=== PATIENT | female | born 1960 | race Caucasian/White ===

== ENCOUNTER 2019-08-09 11:10 | Outpatient (CLI) | payer OTHER, SELFPAY ==
--- NOTE | ~2019-08-09 | XR_ITS ---
EXAMINATION: XR ankle LT 2V DATE: 08/09/2019 11:27 INDICATION: Left ankle pain. TECHNIQUE: 2 views of left ankle were obtained. COMPARISON: None. FINDINGS: Bone alignment is normal. No fracture. There is mild osteoarthritis of talonavicular joint. There are enthesophytes at medial malleolus and posterior aspect of calcaneal tuberosity. There is a nkle soft tissue swelling. IMPRESSION: 1. Mild osteoarthritis of talonavicular joint. Reviewed, dictated and finalized at location A.
== END 2019-08-09 11:11 | disposition home or self-care (01) ==
PROVIDERS: PCP Physician Assistant; Visit Provider Physician Assistant
DX: M25.572 Pain in left ankle and joints of left foot (principal)
CPT/HCPCS: 73600

== ENCOUNTER 2020-08-15 14:40 | Outpatient (CLI) | payer OTHER, SELFPAY ==
--- NOTE | ~2020-08-15 | XR_ITS ---
EXAMINATION: XR chest 2V EXAM DATE: 08/15/2020 15:00 INDICATION: cough, congestion, asthma induced by cold. TECHNIQUE: Frontal and lateral projections of the chest obtained and reviewed. There is no prior kylie dy for comparison. FINDINGS: The lungs are clear. There are no pleural effusions. The cardiomediastinal silhouette is within normal limits. There is no pneumothorax suspected. Lower cervical fusion. Mild thoracic spon dylosis. Mild hyperinflation. There are cholecystectomy clips. IMPRESSION: No acute cardiopulmonary findings. Reviewed, dictated and finalized at location A.
== END 2020-08-15 14:41 | disposition home or self-care (01) ==
LOC: CHSLAB 14:42
PROVIDERS: PCP Physician Assistant; Visit Provider Physician Assistant
DX: R06.2 Wheezing (principal)
CPT/HCPCS: 71046

== ENCOUNTER 2020-08-17 12:43 | Emergency (ER) | payer OTHER, SELFPAY ==
[2020-08-17] VITALS (7 sets, daily range): BP systolic 144–150; BP diastolic 49–69; PULSE 64–76; RESP 16–20; TEMP 37.1; O2SAT 93–100
--- NOTE | ~2020-08-17 | XR_ITS ---
EXAMINATION: XR chest 2V DATE: 08/17/2020 13:20 INDICATION: Cough and shortness of breath TECHNIQUE: PA and lateral views of the chest are obtained. COMPARISON: 08/15/2020 FINDINGS: The lungs are free of acute opacities. There is no pleural effusion or pneumothorax. The ca rdiomediastinal silhouette is normal. There is moderate thoracic spondylosis. There are partially rossy ged changes of anterior fusion in the lower cervical spine. Surgical clips in the right upper quadran t are likely from prior cholecystectomy. IMPRESSION: 1. No acute cardiopulmonary abnormality. Reviewed, dictated and finalized at location B.
--- NOTE | 2020-08-17 12:49 | ED.SOB ---
HPI - SOB/Dyspnea General Chief Complaint: Upper Respiratory Infection Stated Complaint: SOB wheezing Time Seen by Provider: 08/17/20 12:49 Source: patient and RN notes reviewed Mode of arrival: ambulatory Limitations: no limitations History of Present Illness HPI Narrative: patient states that she has been to her primary care physician and has been given ciprofloxacin but that did not seem to be helping so she was changed over to Zithromax. She has also been given nebulizer treatments at home consisting of albuterol. She says she is not getting any better cough continues. She was diagnosed with COVID in March and she has been vaccinated. She had a recent repeat COVID test but she does not have the results. She denies any chest pain she has not been on any steroids. She states when she gets a cold it usually flares up her asthma and she uses a MDI MD elicited complaint: shortness of breath Pertinent past history: asthma Onset (ago): week(s) (1) Context: recent illness Timing: intermittent Severity: moderate Exacerbating factors: exertion and coughing Relieving factors: nothing Known history of: asthma Associated symptoms: cough and sputum production ( occasionally) Treatment prior to arrival: none Related Data Home oxygen amount: none Home Medications Medication Instructions Recorded Confirmed citalopram 20 mg PO DAILY 05/13/19 08/17/20 gabapentin 300 mg PO TID 05/13/19 08/17/20 lisinopril 20 mg PO DAILY 05/13/19 08/17/20 albuterol sulfate 90 mcg INHALATION QID 08/17/20 08/17/20 losartan 100 mg PO DAILY 08/17/20 08/17/20 omeprazole 20 mg PO DAILY 08/17/20 08/17/20 Allergies Allergy/AdvReac Type Severity Reaction Status Date / Time erythromycin base Allergy Vomiting Verified 05/13/19 18:22 neomycin Allergy Vomiting Verified 05/13/19 18:22 Sulfa (Sulfonamide Allergy Hives Verified 05/13/19 18:22 Antibiotics) meperidine [From Demerol] AdvReac Nausea and Verified 05/13/19 18:22 Vomiting CARBINOXAMINE MALEATE Allergy Unknown Uncoded 05/13/19 18:22 Review of Systems Review of Systems: All systems reviewed & are unremarkable except as noted in HPI and below Constitutional: Constitutional: Denies chills and Reports fever(s) ( feels like she has low-grade fevers but states only 99.7) Respiratory: Respiratory: Reports no additional respiratory complaints [facility] Past Medical History Medical History (Updated 08/17/20 @ 14:34 by Bebo Khanna MD) Asthma History of kidney stones Surgical History Surgical History History of bilateral knee replacement Social History Social History (Updated 08/17/20 @ 13:06 by Bebo Khanna MD) Smoking status: Never smoker Additional occupation/education comments: teacher Exam Const: General: healthy appearing and no acute distress Nutritional Appearance: obese centrally obese Orientation/consciousness: patient oriented x3 HENMT: Head: normal to inspection Ears: external ears normal Face and sinus: normal facial exam Mouth: Yes moist mucous membranes Eyes: Conjunctivae: conjunctivae normal Pupils: Equal, round and reactive pupils present EOM: EOMs intact bilaterally Neck: Neck: normal visual inspection Resp: Effort & Inspection: normal respiratory effort Auscultation: wheezes expiratory wheezes, inspiratory wheezes, anterior, posterior and throughout Cardio: Rate: regular rate Rhythm: regular rhythm GI: GI Palp: Yes Soft to palpation and No Tenderness to palpation present (GI) Auscultation: normal bowel sounds Back/Spine/Pelvis: Cervical Spine: cervical ROM normal Thoracic/Lumbar Spine: thoraco-lumbar ROM normal Skin: General skin exam: normal color Rashes: no rashes Neuro: General: patient oriented x3, moves all extremities and no focal motor deficits Speech: normal speech Gait exam (Neuro): Normal gait present Extrem: General: normal to inspection and no pedal edema Psych:
[2020-08-17 13:10] LABS: Basophils Absolute Auto 0.03 K/mm3 (0.00-0.10); Basophils Percent Auto 0.6 % (0.0-1.0); Eosinophils Absolute Auto 0.21 K/mm3 (0.02-0.50); Eosinophils Percent Auto 3.9 % (1.0-6.0); Hematocrit 38.4 % (35.0-49.0); Hemoglobin 12.2 g/dL (12.0-15.0); Immature Granulocyte Absolute 0.01 K/mm3 (0.00-0.00); Immature Granulocyte Percent A 0.2 % (0.0-0.0); Lymphocytes Absolute Auto 1.34 K/mm3 (1.10-4.50); Mean Corpuscular HGB Conc 31.8 g/dL (32.0-36.0); Mean Corpuscular Hemoglobin 27.9 pg (27.0-31.0); Mean Corpuscular Volume 87.7 fL (78.0-102.0); Mean Platelet Volume 9.4 fl (9.2-11.8); Monocytes Absolute Auto 0.42 K/mm3 (0.10-0.90); Monocytes Percent Auto 7.8 % (2.0-11.0); Neutrophils Absolute Auto 3.4 K/mm3 (1.7-7.2); Neutrophils Percent Auto 62.5 % (50.0-70.0); Platelet Count Result 270 K/mm3 (150-420); Red Blood Count 4.38 M/mm3 (4.20-5.40); Red Cell Distribution Width 13.2 % (11.6-14.4); White Blood Count 5.4 K/mm3 (4.8-10.8)
[2020-08-17] MEDS: IPRATROPIUM 0.5 MG/ALBUTEROL SULFATE 2.5 MG AMPUL.NEB 3 ML INHALATION (13:21)
[2020-08-17 13:23] LABS: Alanine Aminotransferase 28 U/L (14-59); Albumin Level 3.4 g/dL (3.4-5.0); Anion Gap 8 mmol/L (8-16); Aspartate Amino Transferase 20 U/L (15-37); Bilirubin,Total 0.4 mg/dL (0.00-1.00); Blood Urea Nitrogen 15 mg/dL (7-18); Calcium 8.7 mg/dL (8.5-10.1); Carbon Dioxide 29 mmol/L (21-32); Chloride 103 mmol/L (98-108); Estimated Glomerular Filt Rate 53; Glucose 92 mg/dL (70-99); Magnesium 1.7 mg/dL (1.8-2.4); Osmolality Calculated 290 mOsm/kg (285-295); Potassium 3.8 mmol/L (3.5-5.1); Sodium 140 mmol/L (136-145); Total Protein 7.7 g/dL (6.4-8.2)
[2020-08-17 13:24] LABS: BNP 106 pg/mL (0-100)
[2020-08-17 13:27] LABS: Alkaline Phosphatase 92 U/L (46-116)
[2020-08-17] MEDS: LEVALBUTEROL NEB 1.25 MG/3 ML INHALATION (13:56)
[2020-08-17] MEDS: methylPREDNISolone SOD SUCC 125 MG VIAL IM (14:39)
== END 2020-08-17 14:45 | disposition home or self-care (01) ==
PROVIDERS: Emergency Provider Emergency Medicine; PCP Physician Assistant
DX: J45.21 Mild intermittent asthma with (acute) exacerbation (principal); R06.02 Shortness of breath
CPT/HCPCS: 36415; 71046; 80053; 83735; 83880; 85025; 94640; 96372; 99283; 99284; J2930

== ENCOUNTER 2020-09-11 15:02 | Outpatient (CLI) | payer OTHER, SELFPAY ==
--- NOTE | ~2020-09-11 | CT_ITS ---
EXAMINATION: CT soft tissue neck w con DATE: 09/11/2020 15:52 INDICATION: Posterior right neck mass. TECHNIQUE: Computed tomography (CT) of the neck was performed with 75 mL Omnipaque-350 intravenous co ntrast. Automated exposure control and iterative reconstruction technique were employed. The dose-hipolito gth product was 496.48 mGy-cm. COMPARISON: None FINDINGS: There is a 1.5 cm subcutaneous lipoma in the right posterior neck. There is a skin marker o verlying this area. There are no pathologically enlarged lymph nodes. There is plaque in the proximal internal carotid arteries with 0% stenosis relative to normal distal artery lumen diameters. There i s a complete opacification of left sphenoid sinus with thickening and sclerosis of the sinus pichardo, c onsistent with chronic sinusitis. There are changes of anterior fusion procedure at C6-C7. There is m oderate cervical spondylosis. IMPRESSION: 1. 1.5 cm subcutaneous lipoma in the right posterior neck. 2. Chronic sinusitis. Reviewed, dictated and finalized at location B.
== END 2020-09-11 15:03 | disposition home or self-care (01) ==
LOC: CHSIMG 15:03
PROVIDERS: PCP Physician Assistant; Visit Provider Physician Assistant
DX: R59.0 Localized enlarged lymph nodes (principal)
CPT/HCPCS: 70491; Q9967

== ENCOUNTER 2020-11-03 11:50 | Outpatient (CLI) | payer OTHER, SELFPAY ==
[2020-11-03 12:11] LABS: Basophils Absolute Auto 0.06 K/mm3 (0.00-0.10); Basophils Percent Auto 0.9 % (0.0-1.0); Eosinophils Absolute Auto 0.29 K/mm3 (0.02-0.50); Eosinophils Percent Auto 4.4 % (1.0-6.0); Hematocrit 37.9 % (35.0-49.0); Hemoglobin 12.5 g/dL (12.0-15.0); Immature Granulocyte Absolute 0.02 K/mm3 (0.00-0.00); Immature Granulocyte Percent A 0.3 % (0.0-0.0); Lymphocytes Absolute Auto 1.27 K/mm3 (1.10-4.50); Lymphocytes Percent Auto 19.1 % (18.0-42.0); Mean Corpuscular Hemoglobin 28.7 pg (27.0-31.0); Mean Corpuscular Volume 87.1 fL (78.0-102.0); Mean Platelet Volume 9.5 fl (9.2-11.8); Monocytes Absolute Auto 0.45 K/mm3 (0.10-0.90); Monocytes Percent Auto 6.8 % (2.0-11.0); Neutrophils Absolute Auto 4.6 K/mm3 (1.7-7.2); Neutrophils Percent Auto 68.5 % (50.0-70.0); Platelet Count Result 249 K/mm3 (150-420); Red Blood Count 4.35 M/mm3 (4.20-5.40); Red Cell Distribution Width 12.8 % (11.6-14.4); White Blood Count 6.7 K/mm3 (4.8-10.8)
[2020-11-03 13:41] LABS: Alanine Aminotransferase 20 U/L (14-59); Albumin Level 3.8 g/dL (3.4-5.0); Alkaline Phosphatase 88 U/L (46-116); Anion Gap 10 mmol/L (8-16); Aspartate Amino Transferase 13 U/L (15-37); Bilirubin,Total 0.4 mg/dL (0.00-1.00); Blood Urea Nitrogen 11 mg/dL (7-18); Calcium 8.7 mg/dL (8.5-10.1); Carbon Dioxide 29 mmol/L (21-32); Chloride 105 mmol/L (98-108); Cholesterol 219 mg/dL (0-200); Estimated Glomerular Filt Rate 59; Glucose 102 mg/dL (70-99); HDL Direct 44 mg/dL (40-60); LDL Cholesterol Calculated 153 mg/dL (<130); Osmolality Calculated 297 mOsm/kg (285-295); Potassium 4.2 mmol/L (3.5-5.1); Sodium 144 mmol/L (136-145); Thyroid Stimulating Hormone 1.45 uIU/mL (0.36-3.74); Total Protein 7.1 g/dL (6.4-8.2); Triglycerides 108 mg/dL (0-150)
== END 2020-11-03 11:51 | disposition home or self-care (01) ==
LOC: CHSLAB 11:52
PROVIDERS: PCP Physician Assistant; Visit Provider Physician Assistant
DX: E78.01 Familial hypercholesterolemia (principal)
CPT/HCPCS: 36415; 80053; 80061; 84443; 85025; 85027

== ENCOUNTER 2023-06-15 16:08 | Outpatient (CLI) | payer OTHER, SELFPAY ==
--- NOTE | ~2023-06-15 | CT_ITS ---
EXAMINATION: CT brain wo con DATE: 06/15/2023 16:37 INDICATION: Headache for 10 days TECHNIQUE: Computed tomography (CT) of the head was performed without intravenous contrast. The mA wa s adjusted according to patient size. Iterative reconstruction technique was employed. Exam dose: 68 1.00 mGy-cm total exam DLP. COMPARISON: 05/13/2019 CT brain FINDINGS: No intracranial mass lesion or hemorrhage or cerebrovascular accident, midline shift or mas s effect. Normal ventricular size. No subdural or epidural hematoma. There is prominent mucoperiosteal thickening of the left sphenoid sinus. The right frontal sinuses ar e virtually undeveloped. The other paranasal sinuses and the mastoid air cells are normally developed and aerated. No fracture or bone destruction of the cranial vault. IMPRESSION: No intracranial abnormality Prominent mucoperiosteal thickening of the left sphenoid sinus, relatively stable since 05/13/2019 Reviewed, dictated and finalized at Location A. Reviewed, dictated and finalized at location B. [employer] [employer] REFEREE IMPRESSION: No intracranial abnormality Prominent mucoperiosteal thickening of the left sphenoid sinus, relatively stab le since 05/13/2019
== END 2023-06-15 16:09 | disposition home or self-care (01) ==
PROVIDERS: PCP Physician Assistant; Visit Provider Physician Assistant
DX: G44.52 New daily persistent headache (NDPH) (principal)
CPT/HCPCS: 70450